=== PATIENT | male | born 2000 | race Caucasian/White ===

== ENCOUNTER 2023-12-20 06:43 | Emergency (ER) | payer SELFPAY ==
[~2023-12-20] VITALS: Ht 172.7 cm; Wt 74.8 kg
[2023-12-20 06:55] VITALS: BP 148/86; PULSE 88; RESP 20; TEMP 97.4; O2SAT 100
[2023-12-20 07:36] VITALS: BP 148/86; PULSE 88; RESP 20; TEMP 97.4; O2SAT 100
== END 2023-12-20 07:36 | disposition home or self-care (01) ==
LOC: MED 06:43
DX: V49.88XA Car occupant (driver) (passenger) injured in other specified transport accidents, initial encounter; Y93.89 Activity, other specified; Y92.89 Other specified places as the place of occurrence of the external cause; Y99.8 Other external cause status
CPT/HCPCS: 99283